=== PATIENT | male | born 1960 | race African-American/Black ===

== ENCOUNTER 2018-09-01 08:47 | Emergency (ER) | payer OTHER ==
[~2018-09-01] VITALS: Ht 175.3 cm; Wt 95.3 kg
== END 2018-09-01 11:34 | disposition home or self-care (01) ==
LOC: ER 08:47
DX: S93.401A Sprain of unspecified ligament of right ankle, initial encounter (principal); X50.1XXA Overexertion from prolonged static or awkward postures, initial encounter; X50.9XXA Other and unspecified overexertion or strenuous movements or postures, initial encounter; Y93.89 Activity, other specified; Y92.89 Other specified places as the place of occurrence of the external cause; Y99.8 Other external cause status